=== PATIENT | female | born 1945 | race Caucasian/White ===

== ENCOUNTER 2023-02-27 11:25 | Emergency (ER) | payer MEDICARE ==
[~2023-02-27] VITALS: Ht 165.1 cm; Wt 113.4 kg
[2023-02-27 12:47] VITALS: BP 168/83; PULSE 67; RESP 20
== END 2023-02-27 15:29 | disposition left against medical advice (07) ==
LOC: EDH 11:25
DX: M79.661 Pain in right lower leg (principal); Z53.21 Procedure and treatment not carried out due to patient leaving prior to being seen by health care provider
CPT/HCPCS: 93926; 93971; 99281